=== PATIENT | female | born 1990 | race Caucasian/White ===

== ENCOUNTER 2019-03-05 10:33 | Emergency (ER) | payer OTHER, SELFPAY ==
[2019-03-05 10:55] VITALS: BP 120/74; PULSE 79; RESP 16; TEMP 36.8; O2SAT 98
--- NOTE | 2019-03-05 11:15 | ED.GENADUL_ITS ---
Discharge Plan Disposition Patient Disposition: HOME Condition: Fair Discharge Details Chief Complaint: Fever Clinical Impression: URI (upper respiratory infection) Primary Care Provider: Lynette,Local ED Provider: Jamila Foley Home Meds and New Rx's Prescriptions: No Action No Known Home Meds RF: 0 Discharge Instructions Instructions: Upper Respiratory Infection (ED) Additional Instructions: Encourage hydration. Tylenol and/or ibuprofen as needed for discomfort. You may use honey, lozenges to help with sore throat. You may try nasal saline to help with nasal congestion. Afrin can help with runny nose. If you use Afrin, please do not take for more than 3 days in a row. Please up with primary care in 1 week if not improving. If you develop fever/chills, inability stay hydrated, shortness of breath or the new/worsening symptoms please seek care urgently once again. Discharge Data Discharge Date/Time-TO BE ENTERED AT DEPARTURE: 03/05/19 11:55 Medical Decision Making Patient is a 28-year-old female, presenting today with chief complaint of URI. She reports symptoms began 2 days ago. She is endorsing congestion, sinus pressure, sore throat, cough. Denies chills. No GI upset. She is accompanied by her son who is here with similar symptoms. Denies any shortness of breath. States that she has noted increased asthmatic symptoms but this is been responding well to her typical albuterol inhaler treatments. Is not feeling short of breath currently. Vital signs within normal limits. Patient appears nontoxic. She reports is mildly erythematous, she has a dry cough at the time of exam. Lungs are clear. No wheezes, rales, rhonchi. Advised this likely viral in etiology. We discussed home treatment and [id number] management that may be of benefit to help with symptomatic management. She has not of her inhalers. Patient has primary care at home and will be returning to [place] within the next week. Advised to follow-up with primary care if not improved over the next week. We discussed new/worsening symptoms when to seek care urgently once again. All of her questions and concerns were addressed and she is in agreement this plan. HPI General Mode of arrival: ambulatory . Date/Time Provider Initiated Documentation: 03/05/19 11:14 . Limitations to Documentation: no limitations . Information obtained by: patient and RN notes reviewed . History of Present Illness 28 year old F presents to the emergency department with the chief complaint of URI, described as moderate, Quality is described as aching (pressure in sinuses, sore throat), Patient reports no radiation. Patient started experiencing this day(s) (2) and it has been constant. No relieving factors improve symptom(s), No exacerbating factors reported . Patient notes cough (reports green phlegm ); denies chest pain, diaphoresis, fever/chills, headaches, loss of appetite, nausea/vomiting, rash, shortness of breath and weakness. Patient did receive the following treatments prior to arrival, none Related Data Home Medications Medication Instructions Recorded Confirmed Unknown [No Known Home Meds] 03/05/19 03/05/19 Allergies Allergy/AdvReac Type Severity Reaction Status Date / Time No Known Allergies Allergy Unverified 03/05/19 10:58 General Stated Complaint: Fever ROQUE: 4 Review of Systems Constitutional Reports as per HPI, Denies chills, Denies fever(s), Denies headache(s) and Denies poor appetite Eyes Reports as per HPI, Denies eye discharge and Denies irritation ENT Reports as per HPI and Denies headache(s) Cardiovascular Reports as per HPI, Denies chest pain, Denies dyspnea and Denies dyspnea on exertion Respiratory Reports as per HPI, Reports cough, Denies hemoptysis, Denies pain with cough, Denies dyspnea, Denies dyspnea on exertion and Reports wheezing (hx of asthma, no symptoms currently) Gastrointestinal Reports as per HPI, Denies abdominal pain, Denies change in bowel habits, Denies nausea and Denies vomiting Integumentary/Breasts Reports as per HPI and Denies rash Neurologic Reports as per HPI and Denies headache(s) Allergic/Immunologic Reports wheezing (hx of asthma, no symptoms currently) [facility] Social History Smoking/Tobacco Use Status: Never Alcohol Intake: current Alcohol Intake frequency: holidays/special occasions only Drug use: Never Substance use type: does not use Do you feel safe at home: Yes Do you feel safe in your relationship?: Yes Exam Const General: cooperative, healthy appearing, comfortable, no acute distress, well developed and well groomed Nutritional Appearance: average body habitus and well nourished Orientation: alert and awake [facility] Head: normal to inspection, normocephalic and atraumatic Ears: hearing grossly normal bilaterally, external ears normal and TM's normal bilaterally General nose exam: external nose normal and nares normal Face and sinus: normal facial exam, sinuses nontender and face symmetric Mouth: oral mucosae normal, lip normal, tongue normal, oropharynx normal and moist mucous membranes Teeth and gingiva: dentition normal Throat: posterior oropharynx normal, tonsils normal and uvula midline Eyes General: appearance normal, both eyes and all related structures Neck Neck: normal visual inspection, full ROM, no lymphadenopathy and no meningeal signs Resp Effort & Inspection: normal respiratory effort, able to speak in complete sentences and no respiratory distress Auscultation: clear to auscultation bilaterally, no rales, no rhonchi and no wheezes Cardio Rate: regular rate Rhythm: regular rhythm Heart Sounds: S1 normal and S2 normal Skin General skin exam: no rashes or lesions noted Neuro General: alert and awake Cognition: normal cognition Speech: speech normal Gait: normal gait Psych Appearance: grossly normal and well kempt Mental Status: mental status grossly normal Speech and Movement: speech and movement normal Course Vital Signs Temperature 36.8 C 03/05/19 10:55 Pulse 79 03/05/19 10:55 Respiratory Rate 16 03/05/19 10:55 Blood Pressure 120/74 03/05/19 10:55 Pulse Oximetry 98 03/05/19 10:55 Temperature 36.8 C 03/05/19 10:55 Temperature Source Temporal Artery Scan 03/05/19 10:55 Pulse 79 03/05/19 10:55 Respiratory Rate 16 03/05/19 10:55 Blood Pressure 120/74 03/05/19 10:55 Pulse Oximetry 98 03/05/19 10:55 Oxygen Delivery Method Room Air 03/05/19 10:55 Oxygen Flow Rate 0 03/05/19 10:55
== END 2019-03-05 11:55 | disposition home or self-care (01) ==
PROVIDERS: Emergency Provider Physician Assistant
DX: J06.9 Acute upper respiratory infection, unspecified (principal)
CPT/HCPCS: 99282